=== PATIENT | male | born 1940 | race Caucasian/White ===

== ENCOUNTER → 2019-02-01 | Outpatient (CLI) | payer MEDICARE, SELFPAY ==
[~2019-02-01] MED LIST: ALBU90OI INH; ALLO100 PO; AMLO5 PO; ASPI81CH PO; BREO ELLIPTA 11 EACH IH; Bystolic20 MG PO; CHOL10002; CITA20 PO; COUMADIN; Coumadin1 MG; Diovan320 MG; GLUCO; GUAI600T33 PO; Glucophage1000 MG; Hair, Skin & N1 EACH PO; INDO25 PO; IRBE150 PO; LEVFLO500 PO; LIPITOR; LOTENSIN; METF500C PO; NITR.4SL SL; OMEPRAZOLE MAGN20 MG PO; PROZ; PROZAC; Prednisone10 MG; SIMV10 PO; TOCO1000 PO; TOPROL; TORSE20 PO; Triamcinolone A15 G3 TP; VALS80 PO; WARF2.5 PO; WARF5; WARF5 PO; ZANTAC
== END | disposition home or self-care (01) ==
LOC: LAB SHORT 10:53 → LAB 10:53
DX: E11.9 Type 2 diabetes mellitus without complications (principal); D50.9 Iron deficiency anemia, unspecified
CPT/HCPCS: 82043

== ENCOUNTER → 2019-03-19 | Outpatient (CLI) | payer MEDICARE ==
[2019-03-20 10:26] LABS: Stool Occult Bld Immuno 1 Negative (NEGATIVE)
== END | disposition home or self-care (01) ==
LOC: LAB 10:13 → LAB SHORT 10:13
PROVIDERS: Nurse Practitioner Family
DX: D64.9 Anemia, unspecified (principal)
CPT/HCPCS: G0328

== ENCOUNTER → 2019-04-01 | Outpatient (CLI) | payer MEDICARE, OTHER | END | disposition home or self-care (01) | LOC: LAB SHORT 17:07 → LAB 17:07 | DX: D51.8 Other vitamin B12 deficiency anemias (principal) | CPT/HCPCS: 82607; 82746 ==

== ENCOUNTER 2019-07-17 13:42 | Emergency (ER) | payer MEDICARE, OTHER ==
[~2019-07-17] VITALS: Ht 170.2 cm; Wt 105.7 kg
[2019-07-17 15:11] LABS: Hematocrit 37.7 % (37.0-53.0); Hemoglobin 11.5 g/dL (13.5-17.5); Mean Corpuscular HGB 28.7 pg (26.0-34.0); Mean Corpuscular HGB Conc 30.5 g/dL (31.5-36.5); Mean Corpuscular Volume 94 fL (80-100); Mean Platelet Volume 10.7 fL (9.1-12.4); Platelet Count 185 K/mm3 (150-400); RDW Standard Deviation 54.4 fL (35.1-46.3); Red Blood Cell Count 4.01 M/mm3 (4.30-5.90)
[2019-07-17 15:22] LABS: Bun/Creatinine Ratio 25.6 (12.0-20.0); Creatinine, Blood 1.25 mg/dL (0.60-1.20); Potassium, Blood 4.2 mmol/L (3.5-5.5)
[2019-07-17 15:24] LABS: International Normalized Ratio 2.51; Prothrombin Time Results 24.5 Sec (9.7-11.5)
[2019-07-17] MEDS ORDERED: VASCEPA0.5 GM PO (16:01)
== END 2019-07-17 16:14 | disposition home or self-care (01) ==
LOC: ER 13:42
PROVIDERS: Emergency Medicine
DX: G45.9 Transient cerebral ischemic attack, unspecified (principal); I48.91 Unspecified atrial fibrillation; E11.9 Type 2 diabetes mellitus without complications; I10 Essential (primary) hypertension; Z86.73 Personal history of transient ischemic attack (TIA), and cerebral infarction without residual deficits; K21.9 Gastro-esophageal reflux disease without esophagitis; Z87.891 Personal history of nicotine dependence
CPT/HCPCS: 70450; 80048; 85027; 85610; 93005; 93010; 96374; 96375; 99284-25; J2060; J2405

== ENCOUNTER → 2020-06-29 | Outpatient (CLI) | payer MEDICARE ==
[~2020-06-29] MED LIST changes: +VASCEPA0.5 GM PO
[2020-06-29 16:02] LABS: Appearance, Urine Clear (Clear); Bilirubin, Urine Neg (Neg); Blood, Urine Neg (Neg); Color, Urine Yellow (P-Yellow); Glucose Qualitative, Urine Neg (Neg); Ketones, Urine Neg (Neg); Leukocyte Esterase, Urine Neg (Neg); Nitrite, Urine Neg (Neg); Protein, Urine Neg (Neg); Urobilinogen, Urine NORM (Normal)
[2020-06-29 16:25] LABS: Creatinine, Urine Random 45.8 mg/dL (27.00-270.00); Protein, Urine Random 13.8 mg/dL (0.0-11.9)
== END | disposition home or self-care (01) ==
LOC: LAB SHORT 13:00 → LAB 13:00
PROVIDERS: Internal Medicine
DX: N18.31 Chronic kidney disease, stage 3a (principal)
CPT/HCPCS: 81003; 82570; 84156

== ENCOUNTER → 2021-01-03 | Outpatient (CLI) | payer MEDICARE ==
[~2021-01-03] MED LIST changes: +Aspir 8181 MG PO; +NEBI5 PO
[2021-01-05 09:06] LABS: Stool Occult Bld Immuno 1 Negative (NEGATIVE)
== END | disposition home or self-care (01) ==
LOC: LAB SHORT 08:00 → PLD 08:00
PROVIDERS: Internal Medicine Gastroenterology
DX: D64.9 Anemia, unspecified (principal)
CPT/HCPCS: 82274

== ENCOUNTER 2021-01-08 12:28 | Day surgery (SDC) | payer MEDICARE ==
[~2021-01-08] VITALS: Ht 170.2 cm; Wt 94.5 kg
== END 2021-01-08 15:50 | disposition home or self-care (01) ==
LOC: ORSCSDS 12:28
DX: D64.9 Anemia, unspecified (principal); K29.80 Duodenitis without bleeding; K29.70 Gastritis, unspecified, without bleeding; K57.30 Diverticulosis of large intestine without perforation or abscess without bleeding; Z86.010 Personal history of colon polyps; E11.9 Type 2 diabetes mellitus without complications; G47.33 Obstructive sleep apnea (adult) (pediatric); I48.91 Unspecified atrial fibrillation; Z79.82 Long term (current) use of aspirin; Z79.84 Long term (current) use of oral hypoglycemic drugs; Z79.01 Long term (current) use of anticoagulants; Z79.899 Other long term (current) drug therapy; Z87.891 Personal history of nicotine dependence
CPT/HCPCS: 82947; 87081; 88305; J2370; J2704; J7120